=== PATIENT | male | born 1985 | race Caucasian/White ===

== ENCOUNTER 2022-09-03 23:02 | Inpatient (IN) ==
[2022-09-03 23:39] LABS: Appearance Urine Clear (Clear); Bilirubin Urine Negative (Negative); Blood Urine Negative (Negative); Color Urine Yellow; Glucose Urine UA Negative (Negative); Ketones Urine Negative (Negative); Leukocyte Esterase Urine Negative (Negative); Nitrite Urine Negative (Negative); Protein Urine Negative (Negative); Specific Gravity Urine 1.018 (1.000-1.030); Urobilinogen Urine Negative (Negative); pH Urine 6.5 (4.5-7.5)
[2022-09-03 23:40] LABS: Basophils # (auto) 0.06 K/uL (0-0.2); Basophils % (auto) 0.5 %; Eosinophils # (auto) 0.27 K/uL (0-0.50); Eosinophils % (auto) 2.4 %; Hemoglobin 16.5 g/dl (14.0-18.0); Immature Granulocytes # (auto) 0.05 K/uL (0.01-0.20); Immature Granulocytes % (auto) 0.4 %; Lymphocytes # (auto) 0.82 K/uL (1.2-3.4); Lymphocytes % (auto) 7.4 %; Mean Corpuscular Hemoglobin 28.2 pg (25.0-34.0); Mean Corpuscular Hgb Conc 35.1 g/dL (32.0-36.0); Mean Corpuscular Volume 80.2 fL (80.0-100.0); Mean Platelet Volume 9.7 fL (9.4-12.4); Monocytes # (auto) 0.84 K/uL (0.11-0.59); Monocytes % (auto) 7.5 %; Neutrophils # (auto) 9.09 K/uL (1.40-6.50); Neutrophils % (auto) 81.8 %; Platelet Count 209 K/uL (130-400); RDW Coefficient of Variation 13.6 % (11.5-14.5); RDW Standard Deviation 39.8 fL (36.4-46.3); Red Blood Count 5.86 M/uL (4.70-6.10); White Blood Count 11.13 K/ul (4.8-10.8)
[2022-09-04 00:01] LABS: Albumin Globulin Ratio 1.3 (0.9-2); Albumin Level 3.7 gm/dl (3.4-5.0); Bilirubin,Total 1.1 mg/dl (0.2-1.0); Calcium 8.6 mg/dl (8.6-10.3); Creatinine Clr Calc Pharmacy 105.7 ml/min; Est GFR (African American) 97.1 ml/min; Est GFR (Non-African American) 83.8 ml/min; Globulin 2.8 gm/dl (2.5-4.0); Magnesium 1.6 mg/dl (1.7-2.4); Potassium 3.9 mmol/L (3.5-5.1); Total Protein 6.5 gm/dl (6.0-8.3)
[2022-09-04 00:22] LABS: Partial Thromboplastin Ratio 1.1
[2022-09-04] MEDS ORDERED: SODIUM CHLORIDE 0.9% 1000ML 2,000 ML IV ONE (00:23)
[2022-09-04] MEDS ORDERED: ONDANSETRON INJ 2 MG/ML 2 ML VIAL IV STA (00:34)
[2022-09-04] MEDS ORDERED: KETOROLAC 30 MG/ML VIAL IV ONE (00:34)
[2022-09-04] MEDS ORDERED: VANCOMYCIN HCL 2,500 MG in SODIUM CHLORIDE 0.9% 500 ML IV ONE (00:37)
[2022-09-04] MEDS ORDERED: VANCOMYCIN CONSULT ACTIVE PRN (00:37)
[2022-09-04] MEDS ORDERED: CEFEPIME 2,000 MG/20 ML VIAL IV STA (00:37)
[2022-09-04 01:07] LABS: Influenza A virus by PCR Negative (Neg); Influenza B virus by PCR Negative (Neg); RSV by PCR Negative (Neg); SARS CoV2 RNA(COVID-19) Ceph NEGATIVE (Negative)
[2022-09-04 01:08] LABS: Lyme Ab IgG w/WB Rflx Negative (Negative)
[2022-09-04 01:14] LABS: Lyme Ab IgM w/WB Rflx Equivocal (Negative)
[2022-09-04] MEDS ORDERED: OPTIRAY 320 100ml IV ONE (01:26)
[2022-09-04] MEDS ORDERED: VANCOMYCIN HCL 2,500 MG in SODIUM CHLORIDE 0.9% 500 ML IV STA (01:29)
[2022-09-04] MEDS ORDERED: SODIUM CHLORIDE 0.9% 1000ML 1,000 ML IV ONE (01:41)
--- NOTE | 2022-09-04 01:41 | CT Scan Report ---
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 TECHNIQUE: Axial computed tomography images of the abdomen and pelvis with intravenous contrast. Automated exposure control was utilized for the study. A dose lowering technique was utilized adhering to the principles of ALARA. CONTRAST: Patient received 94 ML of IV contrast COMPARISON: No relevant prior studies available. FINDINGS: Lung bases: Unremarkable. No mass. No consolidation. ABDOMEN: Liver: Unremarkable. No mass. Gallbladder and bile ducts: Unremarkable. No calcified stones. No ductal dilation. Pancreas: Unremarkable. No mass. No ductal dilation. Spleen: Unremarkable. No splenomegaly. Adrenals: Unremarkable. No mass. Kidneys and ureters: Unremarkable. No solid mass. No hydronephrosis. Stomach and bowel: Unremarkable. No obstruction. No mucosal thickening. PELVIS: Appendix: No findings to suggest acute appendicitis. Bladder: Unremarkable. No mass. Reproductive: Unremarkable as visualized. ABDOMEN and PELVIS: Intraperitoneal space: Unremarkable. No free air. No significant fluid collection. Bones/joints: No acute fracture. No dislocation. Soft tissues: There is some soft tissue swelling in the perineal region without subcutaneous gas to suggest Ling's gangrene. Vasculature: Unremarkable. No abdominal aortic aneurysm. Lymph nodes: Unremarkable. No enlarged lymph nodes. IMPRESSION: There is some soft tissue swelling in the perineal region without subcutaneous gas to suggest Ling's gangrene. Electronically signed by: Demetrius Steen MD 09/04/22 01:40 AM
[2022-09-04] MEDS ORDERED: DOXYCYCLINE HYCLATE 100 MG in DEXTROSE 5% 100 ML IV STA (01:42)
[2022-09-04] MEDS ORDERED: ACETAMINOPHEN 500 MG TAB PO STA (02:35)
[2022-09-04] MEDS ORDERED: NSS + 20MEQ KCL 20 MEQ/1,000 ML BAG IV STA (03:26)
[2022-09-04] MEDS ORDERED: MAGNESIUM SULFATE / D5W 1 GM/100 ML BAG IV STA (03:26)
--- NOTE | 2022-09-04 03:59 | History & Physical Report ---
Date of Service September 04, 2022 Assessment & Plan (1) Sepsis: Plan: Severe sepsis SIRS plus lactic acidosis Secondary to scrotal cellulitis with perineal spread rule out abscess Transaminitis, also noted on outpatient blood work, possible fatty liver disease Mood disorder, currently stable off maintenance medications Hyperglycemia rule out DM Ongoing tobacco abuse Medical telemetry CS, Doxycycline, Cefepime Scrotal ultrasound Urology consult Re: Scrotal swelling N.p.o. until scrotal ultrasound results out Liver ultrasound Re: Transaminitis Check hemoglobin A1c Nicotine patch DVT prophylaxis. Lovenox subcu Full code Text document was generated using [employer] voice recognition software. It may contain grammatical or spelling errors. Kindly contact undersigned for clarification of any documentation item in question. History of Present Illness Chief Complaint: Painful scrotal swelling Primary Care Provider: Dr. De León History obtained from patient, family, and records. Medical history significant for mood disorder, ongoing tobacco abuse. 4 days history right scrotal swelling. Patient thinks he might have been bitten by something. Increased swelling with pain going to his groin and upper belly. Transient headache symptoms. No chest pain, no SOB, no cough. Vancomycin, cefepime, doxycycline administered at the ER for sepsis. Medical History as above Surgical History : None Family History : DM, heart disease, stroke Personal/Social history : 1 pack daily, no EtOH intake, plumbing/HVAC/freezer work Allergies Allergy/AdvReac Type Severity Reaction Status Date / Time meperidine Allergy Severe SOB, Verified 09/04/22 02:21 SWELLING OF THROAT methocarbamol Allergy Severe SOB, Verified 09/04/22 02:21 SWELLING OF THROAT tramadol Allergy Severe SOB, Verified 09/04/22 02:21 SWELLING OF THROAT Home Medications Medication Instructions Recorded Confirmed Type acetaminophen 325 mg tablet 650 mg PO Q4H PRN PAIN/FEVER 09/04/22 09/04/22 History (Tylenol) ibuprofen 200 mg tablet (Advil) 400 mg PO Q6H PRN FEVER/PAIN 09/04/22 09/04/22 History Past Med/Surg History Medical History No significant medical problems Surgical History (Updated 11/04/19 @ 06:42 by Shira Steen PA-C) No pertinent past surgical history Social History Smoking Status: Current every day smoker Do You Dip or Chew Tobacco: No; Hx Alcohol Use: Yes Alcohol type: hard liquor Hx Substance Use: No Preferred Language: Wolof Communication Ability: Effective [employer] Required: No Beliefs That Will Affect Care: None Current Living Situation: Spouse current occupational status: employed Other Information That Helps Us Care for You: No Feels Safe at Home: Yes Safety Concerns: Feels Safe At This Time Assistive Devices: None Review of Systems Review of Systems: As per HPI, all other systems reviewed and negative Physical Exam Physical Exam: GENERAL: Slightly uncomfortable, obese, looks older than stated age, no respiratory distress SKIN: Normal color, warm HEENT: [place] palpebral conjunctivae, no ptosis, dry buccal mucosa NECK : Supple, short neck, no tenderness CHEST : CTA, no tenderness HEART : Tachycardic, no obvious murmurs ABDOMEN: Some distention, nontender : Black crusted lesion over tender right scrotal swelling EXTREMITIES : No LE swelling/tenderness, no other conspicuous deformities noted NEUROLOGIC : Coherent, no facial asymmetry, no other gross focality Results & Data Results & Data Vital Signs (Past 12 Hours) Vital Signs Temp Pulse Resp BP Pulse Ox O2 Del Method 09/04/22 03:29 37.3 C 09/04/22 03:00 110 H 24 130/74 96 Room Air 09/04/22 02:30 118 H 22 126/73 92 Room Air 09/04/22 01:30 115 H 23 131/83 98 09/04/22 01:00 113 H 22 136/84 97 09/04/22 00:58 39.1 C H 09/04/22 00:30 117 H 17 124/85 94 Room Air 09/04/22 00:17 114 H 24 129/67 95 Room Air 09/04/22 00:16 117 H 09/03/22 23:04 38 C H 124 H 18 126/78 97 Room Air Laboratory Results Laboratory Results WBC 11.13 K/ul (4.8-10.8) H 09/03/22 23:24 RBC 5.86 M/uL (4.70-6.10) 09/03/22 23:24 Hgb 16.5 g/dl (14.0-18.0) 09/03/22 23:24 Hct 47.0 % (42.0-52.0) 09/03/22 23:24 MCV 80.2 fL (80.0-100.0) 09/03/22 23:24 MCH 28.2 pg (25.0-34.0) 09/03/22 23:24 MCHC 35.1 g/dL (32.0-36.0) 09/03/22 23:24 RDW Std Deviation 39.8 fL (36.4-46.3) 09/03/22 23: RDW Coeff of Joy 13.6 % (11.5-14.5) 09/03/22 23: Plt Count 209 K/uL (130-400) 09/03/22 23:24 MPV 9.7 fL (9.4-12.4) 09/03/22 23:24 Immature Gran % (Auto) 0.4 % 09/03/22 23:24 Neut % (Auto) 81.8 % 09/03/22 23:24 Lymph % (Auto) 7.4 % 09/03/22 23:24 [place] % (Auto) 7.5 % 09/03/22 23:24 Eos % (Auto) 2.4 % 09/03/22 23:24 Baso % (Auto) 0.5 % 09/03/22 23:24 Neut # (Auto) 9.09 K/uL (1.40-6.50) H 09/03/22 23:24 Lymph # (Auto) 0.82 K/uL (1.2-3.4) L 09/03/22 23:24 [place] # (Auto) 0.84 K/uL (0.11-0.59) H 09/03/22 23:24 Eos # (Auto) 0.27 K/uL (0-0.50) 09/03/22 23:24 Baso # (Auto) 0.06 K/uL (0-0.2) 09/03/22 23:24 Immature Gran # (Auto) 0.05 K/uL (0.01-0.20) 09/03/22 23:24 PT 11.0 Seconds (9.0-12.0) 09/03/22 23:24 INR 1.0 (0.9-1.1) 06/30/23 23:24 APTT 30.0 Seconds (21.0-31.0) 09/03/22 23:24 PTT Ratio 1.1 09/03/22 23:24 Sodium 133 mmol/L (136-145) L 09/03/22 23:24 Potassium 3.9 mmol/L (3.5-5.1) 09/03/22 23:24 Chloride 103 mmol/L (98-107) 09/03/22 23:24 Carbon Dioxide 19 mmol/L (21-32) L 09/03/22 23:24 Anion Gap 11 (3-11) 09/03/22 23:24 BUN 10 mg/dl (6-23) 09/03/22 23:24 Creatinine 1.11 mg/dl (0.6-1.4) 09/03/22 23:24 Est Cr Clr Drug Dosing 105.7 ml/min 09/03/22 23:24 Est GFR ( Amer) 97.1 ml/min 09/03/22 23:24 Est GFR (Non-Af Amer) 83.8 ml/min 09/03/22 23:24 BUN/Creatinine Ratio 9.0 (10-20) L 09/03/22 23:24 Glucose 139 mg/dl (70-99(Fasting)) H 09/03/22 23:24 Lactate 1.4 mmol/L (0.4-2.0) 09/04/22 01:14 Calcium 8.6 mg/dl (8.6-10.3) 09/03/22 23:24 Magnesium 1.6 mg/dl (1.7-2.4) L 09/03/22 23:24 Total Bilirubin 1.1 mg/dl (0.2-1.0) H 09/03/22 23:24 AST 53 U/L (13-39) H 09/03/22 23:24 ALT 78 U/L (7-52) H 09/03/22 23:24 Alkaline Phosphatase 104 U/L (34-104) 09/03/22 23:24 Total Protein 6.5 gm/dl (6.0-8.3) 09/03/22 23:24 Albumin 3.7 gm/dl (3.4-5.0) 09/03/22 23:24 Globulin 2.8 gm/dl (2.5-4.0) 09/03/22 23:24 Albumin/Globulin Ratio 1.3 (0.9-2) 09/03/22 23:24 Procalcitonin 0.09 ng/ml (0-0.5) 09/03/22 23:24 Urine Color Yellow 09/03/22 23:24 Urine Appearance Clear (Clear) 09/03/22 23:24 Urine pH 6.5 (4.5-7.5) 09/03/22 23:24 Ur Specific [place] 1.018 (1.000-1.030) 09/03/22 23:24 Urine Protein Negative (Negative) 09/03/22 23:24 Urine Glucose (UA) Negative (Negative) 09/03/22 23:24 Urine Ketones Negative (Negative) 09/03/22 23:24 Urine Blood Negative (Negative) 09/03/22 23:24 Urine Nitrite Negative (Negative) 09/03/22 23:24 Urine Bilirubin Negative (Negative) 09/03/22 23:24 Urine Urobilinogen Negative (Negative) 09/03/22 23:24 Ur Leukocyte Esterase Negative (Negative) 09/03/22 23:24 Anaplasma Smear See Comment 09/03/22 23:24 Babesia Smear See Comment 09/03/22 23:24 Lyme Disease IgG Ab Negative (Negative) 09/03/22 23:24 Lyme Disease IgM Ab Equivocal (Negative) A 09/03/22 23:24 SARS-CoV-2 (PCR) NEGATIVE (Negative) 09/04/22 00:00 Influenza Type A (PCR) Negative (Neg) 09/04/22 00:00 Influenza Type B (PCR) Negative (Neg) 09/04/22 00:00 RSV (RT-PCR) Negative (Neg) 09/04/22 00:00 Impressions Abdomen/Pelvis CT 09/04/22 00:34 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 TECHNIQUE: Axial computed tomography images of the abdomen and pelvis with intravenous contrast. Automated exposure control was utilized for the study. A dose lowering technique was utilized adhering to the principles of ALARA. CONTRAST: Patient received 94 ML of IV contrast COMPARISON: No relevant prior studies available. FINDINGS: Lung bases: Unremarkable. No mass. No consolidation. ABDOMEN: Liver: Unremarkable. No mass. Gallbladder and bile ducts: Unremarkable. No calcified stones. No ductal dilation. Pancreas: Unremarkable. No mass. No ductal dilation. Spleen: Unremarkable. No splenomegaly. Adrenals: Unremarkable. No mass. Kidneys and ureters: Unremarkable. No solid mass. No hydronephrosis. Stomach and bowel: Unremarkable. No obstruction. No mucosal thickening. PELVIS: Appendix: No findings to suggest acute appendicitis. Bladder: Unremarkable. No mass. Reproductive: Unremarkable as visualized. ABDOMEN and PELVIS: Intraperitoneal space: Unremarkable. No free air. No significant fluid collection. Bones/joints: No acute fracture. No dislocation. Soft tissues: There is some soft tissue swelling in the perineal region without subcutaneous gas to suggest Ling's gangrene. Vasculature: Unremarkable. No abdominal aortic aneurysm. Lymph nodes: Unremarkable. No enlarged lymph nodes. IMPRESSION: There is some soft tissue swelling in the perineal region without subcutaneous gas to suggest Ling's gangrene. Electronically signed by: Demetrius Steen MD 09/04/22 01:40 AM Diagnostic Findings EKG as per my interpretation : Rate 120, sinus tachycardia, normal axis, no ischemia
[2022-09-04] MEDS ORDERED: ACETAMINOPHEN 500 MG TAB PO PRN (04:04)
[2022-09-04] MEDS ORDERED: PROMETHAZINE HCL 12.5 MG in SODIUM CHLORIDE 0.9% 50 ML IV PRN (04:04)
[2022-09-04] MEDS ORDERED: LORazepam 0.5 MG TAB PO PRN (04:04)
[2022-09-04] MEDS ORDERED: NICOTINE 21 MG/24 HR TDSY TD STA (04:11)
[2022-09-04] MEDS: oxyCODONE HCL IR 5 MG TAB (IMMEDIATE RELEASE) PO PRN ×3 (06:46→21:07)
[2022-09-04 07:24] LABS: Basophils # (auto) 0.06 K/uL (0-0.2); Basophils % (auto) 0.6 %; Eosinophils # (auto) 0.19 K/uL (0-0.50); Eosinophils % (auto) 1.8 %; Hematocrit (blood only) 42.1 % (42.0-52.0); Hemoglobin 14.3 g/dl (14.0-18.0); Immature Granulocytes # (auto) 0.03 K/uL (0.01-0.20); Immature Granulocytes % (auto) 0.3 %; Lymphocytes # (auto) 0.95 K/uL (1.2-3.4); Lymphocytes % (auto) 9.2 %; Mean Corpuscular Hemoglobin 28.1 pg (25.0-34.0); Mean Corpuscular Volume 82.9 fL (80.0-100.0); Mean Platelet Volume 9.4 fL (9.4-12.4); Monocytes # (auto) 1.29 K/uL (0.11-0.59); Monocytes % (auto) 12.5 %; Neutrophils # (auto) 7.82 K/uL (1.40-6.50); Neutrophils % (auto) 75.6 %; Platelet Count 163 K/uL (130-400); RDW Coefficient of Variation 13.9 % (11.5-14.5); RDW Standard Deviation 42.2 fL (36.4-46.3); Red Blood Count 5.08 M/uL (4.70-6.10); White Blood Count 10.34 K/ul (4.8-10.8)
[2022-09-04 07:53] LABS: Albumin Globulin Ratio 1.4 (0.9-2); Albumin Level 3.1 gm/dl (3.4-5.0); BUN Creatinine Ratio 8.1 (10-20); Bilirubin,Total 1.1 mg/dl (0.2-1.0); Calcium 7.5 mg/dl (8.6-10.3); Creatinine Clr Calc Pharmacy 95.7 ml/min; Est GFR (African American) 85.8 ml/min; Globulin 2.2 gm/dl (2.5-4.0); Magnesium 1.9 mg/dl (1.7-2.4); Potassium 4.3 mmol/L (3.5-5.1); Total Protein 5.3 gm/dl (6.0-8.3)
--- NOTE | 2022-09-04 08:01 | Ultrasound Report ---
TESTICULAR ULTRASOUND HISTORY: Right scrotal swelling COMPARISON: None. FINDINGS: Right testis: 54 x 36 x 22 mm. A few punctate microliths are noted. There are no intratesticular mass es. Normal color flow. A few small epididymal head cysts up to 7 mm. Trace hydrocele. Asymmetric thic kening within the scrotal wall with increased vascularity. No loculated fluid collections to suggest an abscess. Left testis: 50 x 31 x 23 mm. A few scattered microliths are noted. There are no intratesticular mass es. Normal color flow. No hydrocele. The epididymis is unremarkable. IMPRESSION: 1. Asymmetric thickening within the scrotal wall with increased vascularity. This suggests a cellulit is. No loculated fluid collections to suggest an abscess. 2. No scrotal masses. 3. Trace right hydrocele. ACT 112: Negative or not required by law. Electronically signed by: Jose Denise M.D. 09/04/2022 8:00 AM
--- NOTE | 2022-09-04 08:02 | Ultrasound Report ---
ABDOMINAL ULTRASOUND, RIGHT UPPER QUADRANT HISTORY: Abnormal LFTs.. COMPARISON: Abdomen and pelvis CT 09/04/2022. FINDINGS: Pancreas: The pancreatic head and tail are obscured by overlying bowel gas. The remaining portions of the pancreas are within normal limits. Liver: Unremarkable. Gallbladder: No gallbladder wall thickening. No gallstones. The gallbladder is contracted. CBD: 3 mm. Right kidney: No hydronephrosis. IMPRESSION: No significant abnormality identified within the right upper quadrant. ACT 112: Negative or not required by law. Electronically signed by: Jose Denise M.D. 09/04/2022 8:01 AM
--- NOTE | 2022-09-04 08:03 | XRay Report ---
XR chest 1V not portable HISTORY: Sepsis COMPARISON: Chest 03/25/2021. FINDINGS: The lungs are clear. Cardiac silhouette is normal in size. No pleural effusions. No pneumot horax. IMPRESSION: No acute process. ACT 112: Negative or not required by law. Electronically signed by: Jose Denise M.D. 09/04/2022 8:02 AM
[2022-09-04] MEDS: KETOROLAC TROMETHAMINE 15 MG/ML VIAL IV PRN (08:05)
[2022-09-04 08:18] LABS: Estimated Average Glucose 97 mg/dl
[2022-09-04] MEDS: NICOTINE 21 MG/24 HR TDSY TD SCH (08:27)
[2022-09-04] MEDS: CEFEPIME 2,000 MG in SYRINGE 0 ML IV SCH ×2 (08:27→16:25)
[2022-09-04] MEDS: ENOXAPARIN INJ 40 MG/0.4 ML SYR SQ SCH (08:28)
--- NOTE | 2022-09-04 13:18 | Urology Consultation ---
Date of Consultation September 04, 2022 Assessment & Plan (1) Sepsis: (2) Scrotal abscess: Plan Patient admitted with sepsis. Found to have scrotal abscess. Abscess had significant induration but no considerable tracking and no severe erythema. At the area appeared to be significantly tender. It did not have any considerable areas of fluctuation and no obvious fluid cavity however patient did have a area of darkened/discolored skin at the apex of the likely abscess. This tissue did have a concern for forming eschar possibly from skin necrosis. Patient is on broad-spectrum antibiotics and is receiving supportive care and is not being monitored closely with close management. Currently vitals have stabilized. Pulse is 82. Blood pressure 113/70. Temp is currently 37.2 Tmax was 39.0 earlier today. Patient's labs were all reviewed. White count is currently 10.34. Creatinine 1.23. Hemoglobin 14.3. All other labs are reviewed pertinent pertinent values in the HPI and in the plan section. Patient's imaging has all been reviewed as well. It was interpreted by myself. Had scrotal ultrasound as well as CT scan. Both are showing signs of cellulitis in the scrotum. No considerable signs of subcutaneous air concerning for possible abscess formation. On physical examination no signs of crepitus. No definitive abscess cavity or fluid collection was able to be palpated patient is quite tender on palpation. Did discuss possible spreading of infection however at this point does not appear to have any tracking or significant spread of area. Total area is approximately 2.8 cm in size and does not appear to be tracking along the scrotal tissue. Patient is tolerating p.o. and IV hydration. Had a full lunch. Did discuss extensively different options for management including possible need for debridement and drainage. Discussed concern related to possible skin necrosis from pressure from induration and abscess. Discussed possible options moving forward. Does not appear to have considerable tracking. Does not appear to have signs of foreign years gangrene or other severe changes. Has improved with hydration and close monitoring and care. Extensively reviewed options including surgical drainage. Discussed bedside procedure versus operative management. Discussed other concerns and issues. At this point patient is interested in observation for now with IV hydration and p.o. intake in order to continue oral antibiotics as well as broad-spectrum IV antibiotics. We will be reasonable to monitor for now due to the small size however with signs of possible necrosis may need to have debridement even if abscess resolves or has spontaneous drainage. Discussed extensively need for healing by secondary intent in order to heal the area. Discussed concerns and issues. Multiple questions answered. At this point will allow additional time for hydration as well as broad-spectrum antibiotics. We will plan to continue to monitor. May need to consider surgical intervention in the next day or 2 depending on how patient presents clinically if he develops significant worsening of sepsis development of severe fevers or worsening clinical findings of abscess including tracking or development of gangrene would likely need emergent surgery. We will plan for observation for now with follow-up and monitoring. Will reassess for possible scrotal abscess management with debridement and drainage tomorrow depending on patient's clinical course. Patient with complicated medical and surgical history is reviewed and summarized above all imaging was reviewed interpreted by myself. All labs were reviewed with pertinent values in the HPI. History of Present Illness Attending Physician: Daquan Fernando MD History of Present Illness New consultation for patient with abscess, scrotal pain, discomfort, and ill feelings. Patient developed sudden onset of pain into scrotum and groin and radiating into groin and back in waves comes and goes. Can be severe at times. Discussed and reviewed patient's family history for any history of issues, infections, and disease. Also, discussed patient's medical/surgery history especially related to any history of urinary issues or stone disease. Patient was admitted and is undergoing observation with broad spectrum IV antibiotics. Allergies Allergy/AdvReac Type Severity Reaction Status Date / Time meperidine Allergy Severe SOB, Verified 09/04/22 02:21 SWELLING OF THROAT methocarbamol Allergy Severe SOB, Verified 09/04/22 02:21 SWELLING OF THROAT tramadol Allergy Severe SOB, Verified 09/04/22 02:21 SWELLING OF THROAT Home Medications Medication Instructions Recorded Confirmed Type acetaminophen 325 mg tablet 650 mg PO Q4H PRN PAIN/FEVER 09/04/22 09/04/22 History (Tylenol) ibuprofen 200 mg tablet (Advil) 400 mg PO Q6H PRN FEVER/PAIN 09/04/22 09/04/22 History Patient History Medical History No significant medical problems Surgical History No pertinent past surgical history Social History Smoking Status: Current every day smoker Do You Dip or Chew Tobacco: No; Hx Alcohol Use: Yes Alcohol type: hard liquor Hx Substance Use: No Preferred Language: Greek Communication Ability: Effective [employer] Required: No Beliefs That Will Affect Care: None Current Living Situation: Spouse current occupational status: employed Other Information That Helps Us Care for You: No Feels Safe at Home: Yes Safety Concerns: Feels Safe At This Time Assistive Devices: None Review of Systems Review of Systems: All systems reviewed & are unremarkable except as noted in HPI & below Physical Exam Physical Exam: General: Alert and oriented x 3 in no acute distress. HEENT: Normocephalic Atraumatic. Inspection normal. Cranial Nerves 2-12 Grossly intact. Nares are clear. Neck is supple. Normal inspection of face. Normal inspection of neck. Neurologic: No deficits on inspection. Baseline for motor function and sensory. Psychologic: Normal affect. Respiratory: Nonlabored. No use of accessory muscles. No tachypnea or dyspnea. Cardiovascular: No tachycardia Skin: [place] and Dry. No rashes or visible lesions. Extremities: Moving without issues. No motor deficits on inspection Lymphatics: No edema Abdomen: Soft Non-distended. No rebound or guarding. : Normal phallus. Normal testicular exam without mass or lesion. Possible small hydrocele. Approximately 2.8 cm indurated area on the posterior portion of the scrotum near the dependent portion of the scrotum along the midline with mild erythema. No considerable tracking of tissue. No obvious or significant fluctuance. Darkened possibly a vascular/eschar area approximately 8 mm x 11 mm in size at the apex of the induration. Results & Data Vital Signs (Past 12 Hours) Vital Signs Temp Pulse Pulse Resp BP BP Pulse Ox 09/04/22 11:43 37.2 C 82 18 113/70 94 09/04/22 10:37 103 H 09/04/22 07:48 38.0 C H 105 H 18 108/64 94 09/04/22 06:26 09/04/22 06:26 37.2 C 99 H 16 111/70 99 09/04/22 05:00 99 H 23 125/76 96 09/04/22 04:30 104 H 24 104/73 95 09/04/22 04:07 103 H 09/04/22 04:00 109 H 24 131/81 96 09/04/22 03:30 110 H 22 109/71 96 09/04/22 03:29 37.3 C 09/04/22 03:00 110 H 24 130/74 96 09/04/22 02:30 118 H 22 126/73 92 09/04/22 01:30 115 H 23 131/83 98 O2 Del Method 09/04/22 11:43 Room Air 09/04/22 10:37 09/04/22 07:48 Room Air 09/04/22 06:26 Room Air 09/04/22 06:26 Room Air 09/04/22 05:00 Room Air 09/04/22 04:30 Room Air 09/04/22 04:07 09/04/22 04:00 Room Air 09/04/22 03:30 Room Air 09/04/22 03:29 09/04/22 03:00 Room Air 09/04/22 02:30 Room Air 09/04/22 01:30 PG Care Time/CCT Total # of Minutes Spent Total Time Spent with Patient: Total time spent is greater than 50% in coordination of care (as documented) at patient's floor/unit and/or counseling patient: Coding Level of Care Code 85812 IN/OBS CONSULT LVL 5,80M Diagnoses Sepsis A41.9 Scrotal abscess N49.2
[2022-09-04] MEDS: ACETAMINOPHEN 325 MG TAB PO SCH ×2 (13:51→20:17)
[2022-09-04] MEDS: DAPTOmycin 350 MG in SYRINGE 0 ML IV SCH ×2 (14:59→15:00)
--- NOTE | 2022-09-04 15:09 | Hospitalist Progress Note ---
Date of Service September 04, 2022 Assessment & Plan (1) Sepsis: Plan: Severe sepsis SIRS plus lactic acidosis Secondary to scrotal cellulitis -- blood culture: negative -- Scrotum US: 1. Asymmetric thickening within the scrotal wall with increased vascularity. This suggests a cellulitis. No loculated fluid collections to suggest an abscess. 2. No scrotal masses. . Trace right hydrocele. --Lyme screen protocol, Western blot pending Anaplasmosis -- continue daptomycin, cefepime, doxycycline Transaminitis, also noted on outpatient blood work, possible fatty liver disease Mood disorder, currently stable off maintenance medications Hyperglycemia rule out DM Ongoing tobacco abuse DVT prophylaxis. Lovenox subcu Full code plan of care discussed with patient in detail and at length all questions answered he is understanding, agreeable, comfortable with the plan of care Admission and Anticipated Discharge Date Admission Date: September 04, 2022 Subjective ff up for sepsis, scrotal cellulitis, etc seen resting in bed, not in distress states pain over the scrotal area, R inguinal area, and lower abdomen about the same denies problems with urination still having some fever/chills no nausea/vomiting no chest pain, dyspnea, palpitations, dizziness no other symptoms Review of Systems Review of Systems: all noted and negative except for above Physical Exam Physical Exam: General- oriented x 3, not in distress, speaks in sentences with no effort or accessory muscle use Eyes- anicteric Neck- no JVD Lungs- clear breath sounds bilaterally, no rales/wheezes Heart- normal rate, regular rhythm; no murmurs Abdomen- normal bowel sounds, nondistended, soft, nontender [place]- (+) moderate erythema (+) small area of induration at the midline small eschar R testicle Neuro- alert, oriented x 3; no gross focal neurologic deficits Skin- warm & dry Results & Data Results & Data Vital Signs (Past 12 Hours) Vital Signs Temp Pulse Pulse Resp BP BP Pulse Ox 09/04/22 11:43 37.2 C 82 18 113/70 94 09/04/22 10:37 103 H 09/04/22 07:48 38.0 C H 105 H 18 108/64 94 09/04/22 06:26 09/04/22 06:26 37.2 C 99 H 16 111/70 99 09/04/22 05:00 99 H 23 125/76 96 09/04/22 04:30 104 H 24 104/73 95 09/04/22 04:07 103 H 09/04/22 04:00 109 H 24 131/81 96 09/04/22 03:30 110 H 22 109/71 96 09/04/22 03:29 37.3 C O2 Del Method 09/04/22 11:43 Room Air 09/04/22 10:37 09/04/22 07:48 Room Air 09/04/22 06:26 Room Air 09/04/22 06:26 Room Air 09/04/22 05:00 Room Air 09/04/22 04:30 Room Air 09/04/22 04:07 09/04/22 04:00 Room Air 09/04/22 03:30 Room Air 09/04/22 03:29 all noted and reviewed including below
--- NOTE | 2022-09-04 18:58 | Emergency Department Note ---
Impression & Plan Severe sepsis, Cellulitis of scrotum, Insect bite of scrotum Admit to the [facility] ED Provider Note NAME: REEMA CARO AGE: 36 SEX: M ARRIVES VIA: Walk-In INFORMANT: Patient and his ED PROVIDER(S): Renay Sandoval DO CHIEF COMPLAINT: Insect bite to the scrotum PLAN: Disposition: Admit to the [facility] Condition: Critical MEDICAL DECISION MAKING: This is a 36-year-old male patient who presents to the emergency department with an insect bite to the scrotum. He has had a high fever and what he thought was an insect bite to his scrotum approximately 3 to 4 days ago. Patient's symptoms have worsened since that time. Patient thought he may have been bitten by a spider as the area has now turned black. CT scan of the abdomen/pelvis/scrotum reveals no evidence of necrotizing fasciitis. Laboratory studies showed mild leukocytosis with a white count of 11.13 with 81% neutrophils. H&H are stable. Sodium is slightly low at 133. Patient's initial lactate was 3.6 concerning for severe sepsis. After 2-3 L of normal saline solution it came down to 1.4. The patient remained hemodynamically stable. LFTs were mildly elevated with a total bilirubin of 1.1 and transaminases were elevated at 53/78. Urinalysis was unremarkable. Anaplasmosis testing was negative. Lyme testing was equivocal. The patient was empirically started on IV vancomycin and cefepime. I did add IV doxycycline. Patient was given p.o. Tylenol for his fever. He was given IV Toradol for the pain in the scrotum. [facility] for [facility] management. Triage Nursing notes reviewed and agree with them. Additional history obtained from patient's is at the bedside Vital Signs: reviewed and remarkable for fever and tachycardia Differential diagnosis: Tick bite, brown recluse spider bite, Ling's gangrene, scrotal cellulitis, sepsis, Lyme disease, anaplasmosis ER treatment provided: Cardiac monitoring Diagnostics interpreted by me: ECG: Sinus tachycardia [address] segment elevation or signs of ischemia. There is no ectopy. Cardiac Monitoring: Sinus tachycardia at 118 Laboratory studies: See below Imaging studies: As per my independent interpretation Portable chest x-ray: No acute pulmonary infiltrates or consolidation As per stat rad: CT scan of the abdomen/pelvis: See report HPI: 36/M arrives for evaluation of scrotal pain. On Tuesday morning, the patient noticed a discomfort in his testicles. Patient works the overnight shift and had put on a jumpsuit that he wears at work. He wondered if there had been some sort of spider or insect in the suit that could have bit his scrotum. He noted a black emmy on the scrotum that have been painful for him. He then began to feel sick and feverish on Tuesday. He did have a temp greater than 102. Symptoms seem to be worsening throughout the week. PAST MEDICAL HISTORY:None PAST SURGICAL HISTORY:See Below FAMILY HISTORY:See Below SOCIAL HISTORY:See Below HOME MEDICATIONS:None ALLERGIES:None VITALS:See Below PHYSICAL EXAMINATION: HEENT: Head - normocephalic and atraumatic. Pupils are equal, round, and reactive to light. Extraocular eye muscles are intact, and sclera are anicteric. Nose - moist nasal mucosa without discharge. Mouth - moist buccal mucosa. Oropharynx is nonerythematous and there is no tonsillar exudate or edema noted. Neck: Supple; no cervical lymphadenopathy or nuchal rigidity. Heart: Tachycardic rate and regular rhythm there is a normal S1 and S2 with no murmurs, clicks, or gallops appreciated. Lungs: Clear to auscultation bilaterally with no wheezes, rales, or rhonchi. Abdomen: Soft, completely nontender, nondistended, with good bowel sounds. There are no palpable pulsatile masses or hepatosplenomegaly. There is no guarding, rigidity, or rebound noted. Genitalia: There was an area of necrosis the size of a quarter on the inferior aspect of the scrotum that was exquisitely tender to touch. I could not appreciate an embedded tick or any other type of insect bite. There was surrounding erythema and edema noted to the scrotum. Extremities: No evidence of cyanosis, clubbing, or edema. There are easily palpable peripheral pulses. Skin: warm and dry with good turgor and no rashes. ED COURSE: Times/Reassessments: 2355: Patient was evaluated in room C10. The patient had protocols placed in the waiting room which identified an elevated lactate and the patient was brought back to a room. The patient was bolused with IV crystalloids. A complete septic work-up was initiated. A portable chest x-ray was performed. An order was placed for continuous cardiac monitoring. The patient was in a sinus tachycardia at a rate of 118. A twelve-lead EKG was obtained as described above. Patient received a total of 30 MLS per kilogram of normal saline solution. He was given 4 mg of IV Zofran for nausea and 30 mg of IV Toradol for the pain in his scrotum. He was empirically started on IV vancomycin and IV cefepime. He was given oral Tylenol for his fever. He went for a CT scan of the abdomen/pelvis to further evaluate the scrotum to rule out necrotizing fasciitis. Lyme titer returned at equivocal and the patient was treated with IV doxycycline. Patient's lactic acid was reflexively repeated and came back at 1.4. [facility] and [facility] will [facility] for inpatient care. I have personally spent greater than 95 minutes of critical care time in the direct management of this patient. This includes bedside care, interpretation of diagnostic studies, and testing, discussion with consultants, patient, and family members, and other required patient management activities. This 95 minutes is in excess of all separately billable procedures. Renay Sandoval DO Past Med/Surg History Medical History No significant medical problems Surgical History No pertinent past surgical history Social History Smoking Status: Current every day smoker Do You Dip or Chew Tobacco: No; Hx Alcohol Use: Yes Alcohol type: hard liquor Hx Substance Use: No Preferred Language: Tamazight Communication Ability: Effective Underwriter Required: No Beliefs That Will Affect Care: None Current Living Situation: Spouse current occupational status: employed Other Information That Helps Us Care for You: No Feels Safe at Home: Yes Safety Concerns: Feels Safe At This Time Assistive Devices: None Allergies Allergies Allergy/AdvReac Type Severity Reaction Status Date / Time meperidine Allergy Severe SOB, Verified 09/04/22 02:21 SWELLING OF THROAT methocarbamol Allergy Severe SOB, Verified 09/04/22 02:21 SWELLING OF THROAT tramadol Allergy Severe SOB, Verified 09/04/22 02:21 SWELLING OF THROAT Home Meds Home Medications Medication Instructions Recorded Confirmed acetaminophen 325 mg tablet 650 mg PO Q4H PRN PAIN/FEVER 09/04/22 09/04/22 (Tylenol) ibuprofen 200 mg tablet (Advil) 400 mg PO Q6H PRN FEVER/PAIN 09/04/22 09/04/22 Results & Data (ED) Vital Signs Vital Signs - 24 hr 09/03/22 23:04 09/04/22 00:16 09/04/22 00:17 Temperature 38 C H Temperature Source Temporal Artery Scan Pulse Rate 124 H 117 H 114 H Pulse Rate from SpO2 Sensor 114 H Pulse Rhythm Regular Pulse Strength Normal Respiratory Rate 18 24 Respiratory Effort / Characteristics Non-Labored Spontaneous Respiratory Depth Normal Respiratory Pattern Regular Blood Pressure 126/78 129/67 Blood Pressure Mean 94 87 Blood Pressure Position Sitting Pulse Oximetry 97 95 Oxygen Delivery Method Room Air Room Air Sepsis Recent Fever Within 48 Hours Yes Sepsis New/Unexplained Change in Mental Status N/A Sepsis Action Taken by Nursing No Action Required 09/04/22 00:30 09/04/22 00:58 09/04/22 01:00 Temperature 39.1 C H Temperature Source Oral Pulse Rate 117 H 113 H Pulse Rate from SpO2 Sensor 119 H 114 H Pulse Rhythm Pulse Strength Respiratory Rate 17 22 Respiratory Effort / Characteristics Respiratory Depth Respiratory Pattern Blood Pressure 124/85 136/84 Blood Pressure Mean 98 101 Blood Pressure Position Pulse Oximetry 94 97 Oxygen Delivery Method Room Air Sepsis Recent Fever Within 48 Hours Sepsis New/Unexplained Change in Mental Status Sepsis Action Taken by Nursing 09/04/22 01:30 09/04/22 02:30 09/04/22 03:00 Temperature Temperature Source Pulse Rate 115 H 118 H 110 H Pulse Rate from SpO2 Sensor 232 H 119 H 110 H Pulse Rhythm Pulse Strength Respiratory Rate 23 22 24 Respiratory Effort / Characteristics Respiratory Depth Respiratory Pattern Blood Pressure 131/83 126/73 130/74 Blood Pressure Mean 99 90 92 Blood Pressure Position Pulse Oximetry 98 92 96 Oxygen Delivery Method Room Air Room Air Sepsis Recent Fever Within 48 Hours Sepsis New/Unexplained Change in Mental Status Sepsis Action Taken by Nursing 09/04/22 03:29 09/04/22 03:30 09/04/22 04:00 Temperature 37.3 C Temperature Source Oral Pulse Rate 110 H 109 H Pulse Rate from SpO2 Sensor 110 H 113 H Pulse Rhythm Pulse Strength Respiratory Rate 22 24 Respiratory Effort / Characteristics Respiratory Depth Respiratory Pattern Blood Pressure 109/71 131/81 Blood Pressure Mean 83 97 Blood Pressure Position Pulse Oximetry 96 96 Oxygen Delivery Method Room Air Room Air Sepsis Recent Fever Within 48 Hours Sepsis New/Unexplained Change in Mental Status Sepsis Action Taken by Nursing Laboratory Data 09/04/22 07:06 09/04/22 07:06 Lab Results 09/03/22 09/03/22 09/03/22 Range/Units 23:24 23:24 23:24 WBC 11.13 H (4.8-10.8) K/ul RBC 5.86 (4.70-6.10) M/uL Hgb 16.5 (14.0-18.0) g/dl Hct 47.0 (42.0-52.0) % MCV 80.2 (80.0-100.0) fL MCH 28.2 (25.0-34.0) pg MCHC 35.1 (32.0-36.0) g/dL RDW Std Deviation 39.8 (36.4-46.3) fL RDW Coeff of Joy 13.6 (11.5-14.5) % Plt Count 209 (130-400) K/uL MPV 9.7 (9.4-12.4) fL Immature Gran % (Auto) 0.4 % Neut % (Auto) 81.8 % Lymph % (Auto) 7.4 % Searcy % (Auto) 7.5 % Eos % (Auto) 2.4 % Baso % (Auto) 0.5 % Neut # (Auto) 9.09 H (1.40-6.50) K/uL Lymph # (Auto) 0.82 L (1.2-3.4) K/uL Searcy # (Auto) 0.84 H (0.11-0.59) K/uL Eos # (Auto) 0.27 (0-0.50) K/uL Baso # (Auto) 0.06 (0-0.2) K/uL Immature Gran # (Auto) 0.05 (0.01-0.20) K/uL PT 11.0 (9.0-12.0) Seconds INR 1.0 (0.9-1.1) APTT 30.0 (21.0-31.0) Seconds PTT Ratio 1.1 Sodium (136-145) mmol/L Potassium (3.5-5.1) mmol/L Chloride (98-107) mmol/L Carbon Dioxide (21-32) mmol/L Anion Gap (3-11) BUN (6-23) mg/dl Creatinine (0.6-1.4) mg/dl Est Cr Clr Drug Dosing ml/min Est GFR ( Amer) ml/min Est GFR (Non-Af Amer) ml/min BUN/Creatinine Ratio (10-20) Glucose (70-99(Fasting)) mg/dl Estimat Average Glucose mg/dl Hemoglobin A1c (4.5-5.6) % Lactate 3.6 H* (0.4-2.0) mmol/L Calcium (8.6-10.3) mg/dl Magnesium (1.7-2.4) mg/dl Total Bilirubin (0.2-1.0) mg/dl AST (13-39) U/L ALT (7-52) U/L Alkaline Phosphatase (34-104) U/L Total Protein (6.0-8.3) gm/dl Albumin (3.4-5.0) gm/dl Globulin (2.5-4.0) gm/dl Albumin/Globulin Ratio (0.9-2) Procalcitonin (0-0.5) ng/ml Urine Color Urine Appearance (Clear) Urine pH (4.5-7.5) Ur Specific Leslie (1.000-1.030) Urine Protein (Negative) Urine Glucose (UA) (Negative) Urine Ketones (Negative) Urine Blood (Negative) Urine Nitrite (Negative) Urine Bilirubin (Negative) Urine Urobilinogen (Negative) Ur Leukocyte Esterase (Negative) Anaplasma Smear Babesia Smear Lyme Disease IgG Ab (Negative) Lyme Disease IgM Ab (Negative) SARS-CoV-2 (PCR) (Negative) Influenza Type A (PCR) (Neg) Influenza Type B (PCR) (Neg) RSV (RT-PCR) (Neg) 09/03/22 09/03/22 09/03/22 Range/Units 23:24 23:24 23:24 WBC (4.8-10.8) K/ul RBC (4.70-6.10) M/uL Hgb (14.0-18.0) g/dl Hct (42.0-52.0) % MCV (80.0-100.0) fL MCH (25.0-34.0) pg MCHC (32.0-36.0) g/dL RDW Std Deviation (36.4-46.3) fL RDW Coeff of Joy (11.5-14.5) % Plt Count (130-400) K/uL MPV (9.4-12.4) fL Immature Gran % (Auto) % Neut % (Auto) % Lymph % (Auto) % Searcy % (Auto) % Eos % (Auto) % Baso % (Auto) % Neut # (Auto) (1.40-6.50) K/uL Lymph # (Auto) (1.2-3.4) K/uL Searcy # (Auto) (0.11-0.59) K/uL Eos # (Auto) (0-0.50) K/uL Baso # (Auto) (0-0.2) K/uL Immature Gran # (Auto) (0.01-0.20) K/uL PT (9.0-12.0) Seconds INR (0.9-1.1) APTT (21.0-31.0) Seconds PTT Ratio Sodium 133 L (136-145) mmol/L Potassium 3.9 (3.5-5.1) mmol/L Chloride 103 (98-107) mmol/L Carbon Dioxide 19 L (21-32) mmol/L Anion Gap 11 (3-11) BUN 10 (6-23) mg/dl Creatinine 1.11 (0.6-1.4) mg/dl Est Cr Clr Drug Dosing 105.7 ml/min Est GFR ( Amer) 97.1 ml/min Est GFR (Non-Af Amer) 83.8 ml/min BUN/Creatinine Ratio 9.0 L (10-20) Glucose 139 H (70-99(Fasting)) mg/dl Estimat Average Glucose mg/dl Hemoglobin A1c (4.5-5.6) % Lactate (0.4-2.0) mmol/L Calcium 8.6 (8.6-10.3) mg/dl Magnesium 1.6 L (1.7-2.4) mg/dl Total Bilirubin 1.1 H (0.2-1.0) mg/dl AST 53 H (13-39) U/L ALT 78 H (7-52) U/L Alkaline Phosphatase 104 (34-104) U/L Total Protein 6.5 (6.0-8.3) gm/dl Albumin 3.7 (3.4-5.0) gm/dl Globulin 2.8 (2.5-4.0) gm/dl Albumin/Globulin Ratio 1.3 (0.9-2) Procalcitonin 0.09 (0-0.5) ng/ml Urine Color Yellow Urine Appearance Clear (Clear) Urine pH 6.5 (4.5-7.5) Ur Specific Leslie 1.018 (1.000-1.030) Urine Protein Negative (Negative) Urine Glucose (UA) Negative (Negative) Urine Ketones Negative (Negative) Urine Blood Negative (Negative) Urine Nitrite Negative (Negative) Urine Bilirubin Negative (Negative) Urine Urobilinogen Negative (Negative) Ur Leukocyte Esterase Negative (Negative) Anaplasma Smear Babesia Smear Lyme Disease IgG Ab (Negative) Lyme Disease IgM Ab (Negative) SARS-CoV-2 (PCR) (Negative) Influenza Type A (PCR) (Neg) Influenza Type B (PCR) (Neg) RSV (RT-PCR) (Neg) 09/03/22 09/03/22 09/03/22 Range/Units 23:24 23:24 23:34 WBC (4.8-10.8) K/ul RBC (4.70-6.10) M/uL Hgb (14.0-18.0) g/dl Hct (42.0-52.0) % MCV (80.0-100.0) fL MCH (25.0-34.0) pg MCHC (32.0-36.0) g/dL RDW Std Deviation (36.4-46.3) fL RDW Coeff of Joy (11.5-14.5) % Plt Count (130-400) K/uL MPV (9.4-12.4) fL Immature Gran % (Auto) % Neut % (Auto) % Lymph % (Auto) % Sear[place] % (Auto) % Eos % (Auto) % Baso % (Auto) % Neut # (Auto) (1.40-6.50) K/uL Lymph # (Auto) (1.2-3.4) K/uL [place] # (Auto) (0.11-0.59) K/uL Eos # (Auto) (0-0.50) K/uL Baso # (Auto) (0-0.2) K/uL Immature Gran # (Auto) (0.01-0.20) K/uL PT (9.0-12.0) Seconds INR (0.9-1.1) APTT (21.0-31.0) Seconds PTT Ratio Sodium (136-145) mmol/L Potassium (3.5-5.1) mmol/L Chloride (98-107) mmol/L Carbon Dioxide (21-32) mmol/L Anion Gap (3-11) BUN (6-23) mg/dl Creatinine (0.6-1.4) mg/dl Est Cr Clr Drug Dosing ml/min Est GFR ( Amer) ml/min Est GFR (Non-Af Amer) ml/min BUN/Creatinine Ratio (10-20) Glucose (70-99(Fasting)) mg/dl Estimat Average Glucose 97 mg/dl Hemoglobin A1c 5.0 (4.5-5.6) % Lactate (0.4-2.0) mmol/L Calcium (8.6-10.3) mg/dl Magnesium (1.7-2.4) mg/dl Total Bilirubin (0.2-1.0) mg/dl AST (13-39) U/L ALT (7-52) U/L Alkaline Phosphatase (34-104) U/L Total Protein (6.0-8.3) gm/dl Albumin (3.4-5.0) gm/dl Globulin (2.5-4.0) gm/dl Albumin/Globulin Ratio (0.9-2) Procalcitonin (0-0.5) ng/ml Urine Color Urine Appearance (Clear) Urine pH (4.5-7.5) Ur Specific Leslie (1.000-1.030) Urine Protein (Negative) Urine Glucose (UA) (Negative) Urine Ketones (Negative) Urine Blood (Negative) Urine Nitrite (Negative) Urine Bilirubin (Negative) Urine Urobilinogen (Negative) Ur Leukocyte Esterase (Negative) Anaplasma Smear See Comment Babesia Smear See Comment Lyme Disease IgG Ab Negative (Negative) Lyme Disease IgM Ab Equivocal A (Negative) SARS-CoV-2 (PCR) (Negative) Influenza Type A (PCR) (Neg) Influenza Type B (PCR) (Neg) RSV (RT-PCR) (Neg) 09/04/22 09/04/22 Range/Units 00:00 01:14 WBC (4.8-10.8) K/ul RBC (4.70-6.10) M/uL Hgb (14.0-18.0) g/dl Hct (42.0-52.0) % MCV (80.0-100.0) fL MCH (25.0-34.0) pg MCHC (32.0-36.0) g/dL RDW Std Deviation (36.4-46.3) fL RDW Coeff of Joy (11.5-14.5) % Plt Count (130-400) K/uL MPV (9.4-12.4) fL Immature Gran % (Auto) % Neut % (Auto) % Lymph % (Auto) % [place] % (Auto) % Eos % (Auto) % Baso % (Auto) % Neut # (Auto) (1.40-6.50) K/uL Lymph # (Auto) (1.2-3.4) K/uL [place] # (Auto) (0.11-0.59) K/uL Eos # (Auto) (0-0.50) K/uL Baso # (Auto) (0-0.2) K/uL Immature Gran # (Auto) (0.01-0.20) K/uL PT (9.0-12.0) Seconds INR (0.9-1.1) APTT (21.0-31.0) Seconds PTT Ratio Sodium (136-145) mmol/L Potassium (3.5-5.1) mmol/L Chloride (98-107) mmol/L Carbon Dioxide (21-32) mmol/L Anion Gap (3-11) BUN (6-23) mg/dl Creatinine (0.6-1.4) mg/dl Est Cr Clr Drug Dosing ml/min Est GFR ( Amer) ml/min Est GFR (Non-Af Amer) ml/min BUN/Creatinine Ratio (10-20) Glucose (70-99(Fasting)) mg/dl Estimat Average Glucose mg/dl Hemoglobin A1c (4.5-5.6) % Lactate 1.4 (0.4-2.0) mmol/L Calcium (8.6-10.3) mg/dl Magnesium (1.7-2.4) mg/dl Total Bilirubin (0.2-1.0) mg/dl AST (13-39) U/L ALT (7-52) U/L Alkaline Phosphatase (34-104) U/L Total Protein (6.0-8.3) gm/dl Albumin (3.4-5.0) gm/dl Globulin (2.5-4.0) gm/dl Albumin/Globulin Ratio (0.9-2) Procalcitonin (0-0.5) ng/ml Urine Color Urine Appearance (Clear) Urine pH (4.5-7.5) Ur Specific Leslie (1.000-1.030) Urine Protein (Negative) Urine Glucose (UA) (Negative) Urine Ketones (Negative) Urine Blood (Negative) Urine Nitrite (Negative) Urine Bilirubin (Negative) Urine Urobilinogen (Negative) Ur Leukocyte Esterase (Negative) Anaplasma Smear Babesia Smear Lyme Disease IgG Ab (Negative) Lyme Disease IgM Ab (Negative) SARS-CoV-2 (PCR) NEGATIVE (Negative) Influenza Type A (PCR) Negative (Neg) Influenza Type B (PCR) Negative (Neg) RSV (RT-PCR) Negative (Neg) Administered Medications Acetaminophen (Acetaminophen 500 Mg Tab) 500 mg PO Q6H PRN PRN Reason: Pain/Fever Stop: 10/04/22 04:03 Last Admin: 09/04/22 06:46 Dose: 500 mg Documented By: SAMEER Acetaminophen (Acetaminophen 325 Mg Tab) 650 mg PO Q6H [facility] Stop: 10/04/22 13:59 Last Admin: 09/04/22 13:51 Dose: 650 mg Documented By: YAMILET Enoxaparin Sodium (Enoxaparin Inj 40 Mg/0.4 Ml Syr) 40 mg SQ QAM [facility] Stop: 10/04/22 08:59 Last Admin: 09/04/22 08:28 Dose: Not Given Documented By: YAMILET Cefepime HCl 2,000 mg/ Syringe 20 mls @ 5 mls/min IV Q8H [facility]; Protocol Stop: 09/11/22 08:59 Last Admin: 09/04/22 16:25 Dose: 5 mls/min Documented By: Admin: 09/04/22 08:27 Dose: 5 mls/min Documented By: YAMILET Daptomycin 350 mg/ Syringe 7 mls @ 3.5 mls/min IV Q24H [facility]; Protocol Stop: 09/11/22 14:44 Last Admin: 09/04/22 15:00 Dose: 3.5 mls/min Documented By: Admin: 09/04/22 14:59 Dose: 5 mls/min Documented By: YAMILET Ketorolac Tromethamine (Ketorolac Tromethamine 15 Mg/Ml Vial) 15 mg IV Q6H PRN PRN Reason: Pain Stop: 09/09/22 04:03 Last Admin: 09/04/22 08:05 Dose: 15 mg Documented By: YAMILET Miscellaneous (Remove Nicoderm Patch) 1 each N/A DAILY@0859 [facility] Stop: 10/04/22 08:58 Last Admin: 09/04/22 08:06 Dose: 1 each Documented By: YAMILET Nicotine (Nicotine 21 Mg/24 Hr Tdsy) 21 mg TD QAM [facility] Stop: 10/04/22 08:59 Last Admin: 09/04/22 08:27 Dose: 21 mg Documented By: YAMILET Oxycodone HCl (Oxycodone Hcl Ir 5 Mg Tab (Immediate Release)) 5 - 10 mg PO QID PRN PRN Reason: Pain Stop: 09/18/22 04:03 Last Admin: 09/04/22 13:10 Dose: 10 mg Documented By: Admin: 09/04/22 06:46 Dose: 10 mg Documented By: SAMEER Discontinued Medications Acetaminophen (Acetaminophen 500 Mg Tab) 1,000 mg PO NOW STA Stop: 09/04/22 02:36 Last Admin: 09/04/22 02:40 Dose: 1,000 mg Documented By: SATYA Sodium Chloride (Nss 1000ml) 2,000 mls @ 999 mls/hr IV .Q2H1M ONE Stop: 09/04/22 02:23 Last Infusion: 09/04/22 02:28 Dose: 0 mls/hr Documented By: Admin: 09/04/22 00:26 Dose: 999 mls/hr Documented By: SATYA Cefepime HCl (Maxipime) 2,000 mg in 20 mls @ 5 mls/min IV NOW STA; Protocol Stop: 09/04/22 00:40 Last Admin: 09/04/22 00:55 Dose: 5 mls/min Documented By: SATYA Vancomycin HCl 2,500 mg/ (Sodium Chloride) 550 mls @ 180 mls/hr IV NOW STA Stop: 09/04/22 04:32 Last Infusion: 09/04/22 04:42 Dose: 0 mls/hr Documented By: Admin: 09/04/22 01:35 Dose: 180 mls/hr Documented By: SATYA Sodium Chloride (Nss 1000ml) 1,000 mls @ 999 mls/hr IV .Q1H1M ONE Stop: 09/04/22 02:41 Last Infusion: 09/04/22 03:15 Dose: 0 mls/hr Documented By: Admin: 09/04/22 02:06 Dose: 999 mls/hr Documented By: SATYA Doxycycline Hyclate 100 mg/ (Dextrose) 110 mls @ 50 mls/hr IV NOW STA Stop: 09/04/22 03:53 Last Infusion: 09/04/22 04:41 Dose: 0 mls/hr Documented By: Admin: 09/04/22 02:29 Dose: 50 mls/hr Documented By: SATYA Magnesium Sulfate/Dextrose (Magnesium Sulfate / D5w) 1 gm in 100 mls @ 50 mls/hr IV ONE STA Stop: 09/04/22 05:25 Last Infusion: 09/04/22 06:46 Dose: 0 mls/hr Documented By: Admin: 09/04/22 04:54 Dose: 50 mls/hr Documented By: SATYA Potassium Chloride/Sodium Chloride (Normal Saline W/20 Meq Kcl) 20 meq in 1,000 mls @ 80 mls/hr IV .[id number] STA; Protocol Stop: 09/04/22 15:55 Last Infusion: 09/04/22 17:54 Dose: 0 mls/hr Documented By: Admin: 09/04/22 04:54 Dose: 80 mls/hr Documented By: SATYA Ioversol (Optiray 320 100ml) 94 ml IV ONCE ONE Stop: 09/04/22 01:27 Last Admin: 09/04/22 01:21 Dose: 94 ml Documented By: FAVIAN Ketorolac Tromethamine (Ketorolac 30 Mg/Ml Vial) 30 mg IV NOW ONE Stop: 09/04/22 00:35 Last Admin: 09/04/22 01:34 Dose: 30 mg Documented By: SATYA Nicotine (Nicotine 21 Mg/24 Hr Tdsy) 21 mg TD ONE STA Stop: 09/04/22 04:12 Last Admin: 09/04/22 04:54 Dose: 21 mg Documented By: SATYA Ondansetron HCl (Ondansetron Inj 2 Mg/Ml 2 Ml Vial) 4 mg IV NOW STA Stop: 09/04/22 00:35 Last Admin: 09/04/22 01:34 Dose: 4 mg Documented By: SATYA Imaging Data Radiologist's Impression: Chest X-Ray 09/03/22 23:10 XR chest 1V not portable HISTORY: Sepsis COMPARISON: Chest 03/25/2021. FINDINGS: The lungs are clear. Cardiac silhouette is normal in size. No pleural effusions. No pneumothorax. IMPRESSION: No acute process. ACT 112: Negative or not required by law. Electronically signed by: Jose Denise M.D. 09/04/2022 8:02 AM Liver Ultrasound 09/04/22 03:58 ABDOMINAL ULTRASOUND, RIGHT UPPER QUADRANT HISTORY: Abnormal LFTs.. COMPARISON: Abdomen and pelvis CT 09/04/2022. FINDINGS: Pancreas: The pancreatic head and tail are obscured by overlying bowel gas. The remaining portions of the pancreas are within normal limits. Liver: Unremarkable. Gallbladder: No gallbladder wall thickening. No gallstones. The gallbladder is contracted. CBD: 3 mm. Right kidney: No hydronephrosis. IMPRESSION: No significant abnormality identified within the right upper quadrant. ACT 112: Negative or not required by law. Electronically signed by: Jose Denise M.D. 09/04/2022 8:01 AM Scrotum Ultrasound 09/04/22 03:58 TESTICULAR ULTRASOUND HISTORY: Right scrotal swelling COMPARISON: None. FINDINGS: Right testis: 54 x 36 x 22 mm. A few punctate microliths are noted. There are no intratesticular masses. Normal color flow. A few small epididymal head cysts up to 7 mm. Trace hydrocele. Asymmetric thickening within the scrotal wall with increased vascularity. No loculated fluid collections to suggest an abscess. Left testis: 50 x 31 x 23 mm. A few scattered microliths are noted. There are no intratesticular masses. Normal color flow. No hydrocele. The epididymis is unremarkable. IMPRESSION: 1. Asymmetric thickening within the scrotal wall with increased vascularity. This suggests a cellulitis. No loculated fluid collections to suggest an absces s. 2. No scrotal masses. 3. Trace right hydrocele. ACT 112: Negative or not required by law. Electronically signed by: Jose Denise M.D. 09/04/2022 8:00 AM Discharge Plan Visit Data Chief Complaint: Fever Stated Complaint: BIT IN TESTICLES ED Provider: Renay Sandoval Discharge Problem: Severe sepsis, Cellulitis of scrotum, Insect bite of scrotum Patient Disposition: Admitted As Inpatient Discharge Instructions Interventions: ED Discharge Assessment Last Done: 09/04/22 05:10
[2022-09-04] MEDS: DOXYCYCLINE HYCLATE 100 MG CAP PO SCH (20:17)
--- NOTE | 2022-09-04 21:20 | Electrocardiogram Report ---
Test Reason : Blood Pressure : / mmHG Vent. Rate : 115 BPM Atrial Rate : 115 BPM P-R Int : 136 ms QRS Dur : 076 ms QT Int : 314 ms P-R-T Axes : 047 010 039 degrees QTc Int : 434 ms Sinus tachycardia Otherwise normal ECG When compared with ECG of 06-DEC-2017 10:44, No significant change was found Confirmed by Noe Hampton ([id number]) on 09/04/2022 9:20:01 PM Referred By: REFERRED SELF Confirmed By:Noe Hampton
[2022-09-05] MEDS: ACETAMINOPHEN 325 MG TAB PO SCH ×4 (02:50→19:48)
[2022-09-05] MEDS: CEFEPIME 2,000 MG in SYRINGE 0 ML IV SCH ×2 (02:51→10:32)
[2022-09-05] MEDS: oxyCODONE HCL IR 5 MG TAB (IMMEDIATE RELEASE) PO PRN ×3 (02:51→16:43)
[2022-09-05] MEDS ORDERED: fentaNYL citrate PF 100 MCG/2 ML VIAL ONE ×2 (06:31→07:50)
[2022-09-05] MEDS ORDERED: ONDANSETRON INJ 2 MG/ML 2 ML VIAL ONE (06:31)
[2022-09-05] MEDS ORDERED: MIDAZOLAM HCL 1 MG/ML 2ML VIAL ONE (06:31)
[2022-09-05] MEDS ORDERED: DEXAMETHASONE SOD INJ 4 MG/ML VIAL ONE (06:31)
[2022-09-05] MEDS ORDERED: PROPOFOL IV EMULSION 10 MG/ML 20 ML VIAL IV ONE (06:31)
[2022-09-05] MEDS ORDERED: LIDOCAINE 2% 2 ML VIAL/AMP(20MG/ML) INFIL ONE (06:31)
[2022-09-05] MEDS ORDERED: ONDANSETRON INJ 2 MG/ML 2 ML VIAL IV PRN (06:49)
[2022-09-05] MEDS ORDERED: ePHEDrine sulfate 50 MG/ML AMP IV PRN (06:49)
[2022-09-05] MEDS ORDERED: ATROPINE SULFATE 0.1 MG/ML 10ML SYR IV PRN (06:49)
[2022-09-05] MEDS ORDERED: fentaNYL citrate PF 100 MCG/2 ML VIAL IV PRN (06:49)
--- NOTE | 2022-09-05 06:49 | Anesthesiology Consultation ---
Date of Service September 05, 2022 Assessment & Plan (1) Encounter for pre-operative examination: Chart Review Chart Review: Acceptable Risk for Surgery and Patient NOT seen in Pre Admission Testing Consults Requested none History Surgery Operation Date: 09/05/22 07:30 Proposed Procedures p Scrotal Hydrocelectomy - Ruben Avina, Height/Weight Height: 5 ft 9 in Weight: 101 kg Allergies Allergy/AdvReac Type Severity Reaction Status Date / Time meperidine Allergy Severe SOB, Verified 09/04/22 02:21 SWELLING OF THROAT methocarbamol Allergy Severe SOB, Verified 09/04/22 02:21 SWELLING OF THROAT tramadol Allergy Severe SOB, Verified 09/04/22 02:21 SWELLING OF THROAT Medications Home Medications Medication Instructions Recorded Confirmed Last Taken acetaminophen 325 mg tablet 650 mg PO Q4H PRN PAIN/FEVER 09/04/22 09/04/22 Unknown (Tylenol) ibuprofen 200 mg tablet (Advil) 400 mg PO Q6H PRN FEVER/PAIN 09/04/22 09/04/22 Unknown Active Medications Generic Name Dose Route Start Last Admin Trade Name Freq PRN Reason Stop Dose Admin Acetaminophen 500 mg 09/04/22 04:04 09/04/22 06:46 Acetaminophen 500 Mg Tab PO 10/04/22 04:03 500 mg Q6H PRN Administration Pain/Fever Acetaminophen 650 mg 09/04/22 14:00 09/05/22 02:50 Acetaminophen 325 Mg Tab PO 10/04/22 13:59 650 mg Q6H NICOLE Administration Doxycycline Hyclate 100 mg 09/04/22 21:00 09/04/22 20:17 Doxycycline Hyclate 100 Mg Cap PO 09/11/22 20:59 100 mg BID NICOLE Administration Enoxaparin Sodium 40 mg 09/04/22 09:00 09/04/22 08:28 Enoxaparin Inj 40 Mg/0.4 Ml Syr SQ 10/04/22 08:59 Not Given QAM NICOLE Cefepime HCl 2,000 mg/ Syringe 20 mls @ 5 mls/min 09/04/22 09:00 09/05/22 02:51 IV 09/11/22 08:59 5 mls/min Q8H NICOLE Administration Protocol Daptomycin 350 mg/ Syringe 7 mls @ 3.5 mls/min 09/04/22 14:45 07/01/23 15:00 IV 09/11/22 14:44 3.5 mls/min Q24H NICOLE Administration Protocol Ketorolac Tromethamine 15 mg 09/04/22 04:04 09/04/22 08:05 Ketorolac Tromethamine 15 Mg/Ml Vial IV 09/09/22 04:03 15 mg Q6H PRN Administration Pain Miscellaneous 1 each 09/04/22 08:59 09/04/22 08:06 Remove Nicoderm Patch N/A 10/04/22 08:58 1 each [id number] NICOLE Administration Nicotine 21 mg 09/04/22 09:00 09/04/22 08:27 Nicotine 21 Mg/24 Hr Tdsy TD 10/04/22 08:59 21 mg QAM NICOLE Administration Oxycodone HCl 5 - 10 mg 09/04/22 04:04 09/05/22 02:51 Oxycodone Hcl Ir 5 Mg Tab (Immediate Release) PO 09/18/22 04:03 10 mg QID PRN Administration Pain Past Medical History Medical History No significant medical problems Past Surgical History Surgical History No pertinent past surgical history Social History Smoking Status: Current every day smoker tobacco type: cigarettes Do You Dip or Chew Tobacco: No Hx Alcohol Use: Yes Alcohol type: hard liquor alcohol intake frequency: a few times a month Hx Substance Use: No Physical Exam Vital Signs Last Vital Signs Temp 98.6 F 09/05/22 02:56 Pulse 95 H 09/05/22 02:56 Resp 14 09/05/22 02:56 BP 110/70 09/05/22 02:56 Pulse Ox 96 09/04/22 22:52 O2 Del Method Room Air 09/05/22 02:56 Testing Laboratory Results 09/04/22 07:06 09/04/22 07:06 PT 11.0 Seconds (9.0-12.0) 09/03/22 23:24 INR 1.0 (0.9-1.1) 09/03/22 23:24 APTT 30.0 Seconds (21.0-31.0) 09/03/22 23:24 Hemoglobin A1c 5.0 % (4.5-5.6) 09/03/22 23:34 Urine Color Yellow 09/03/22 23:24 Urine Appearance Clear (Clear) 09/03/22 23:24 Urine pH 6.5 (4.5-7.5) 09/03/22 23:24 Ur Specific [place] 1.018 (1.000-1.030) 09/03/22 23:24 Urine Protein Negative (Negative) 09/03/22 23:24 Urine Glucose (UA) Negative (Negative) 09/03/22 23:24 Urine Ketones Negative (Negative) 09/03/22 23:24 Urine Nitrite Negative (Negative) 09/03/22 23:24 Ur Leukocyte Esterase Negative (Negative) 09/03/22 23:24 09/04/22 00:10 Aerobic Blood Culture - Preliminary Blood No growth in Aerobic bottle after 24 hours. Anaerobic Blood Culture - Preliminary No growth in Anaerobic bottle after 24 hours. 09/03/22 23:24 Aerobic Blood Culture - Preliminary Blood No growth in Aerobic bottle after 24 hours. Anaerobic Blood Culture - Preliminary No growth in Anaerobic bottle after 24 hours.
[2022-09-05] MEDS ORDERED: ACETAMINOPHEN 1000 MG/100 ML IV IV ONE (07:07)
--- NOTE | 2022-09-05 07:26 | Urology Progress Note ---
Date of Service September 05, 2022 Assessment & Plan (1) Sepsis: (2) Scrotal abscess: Plan Patient admitted with sepsis. Found to have scrotal abscess. Abscess had significant induration but no considerable tracking and no severe erythema. At the area appeared to be significantly tender. It did not have any considerable areas of fluctuation and no obvious fluid cavity however patient did have a area of darkened/discolored skin at the apex of the likely abscess. This tissue did have a concern for forming eschar possibly from skin necrosis. Patient is on broad-spectrum antibiotics and is receiving supportive care and is not being monitored closely with close management. Currently vitals have stabilized. Mild tachycardia. Temp is currently 37.0 Tmax was 39.0 at admission. Patient's labs were all reviewed. No major change. White count down on abx. All other labs are reviewed pertinent pertinent values in the HPI and in the plan section. Discussed concern related to possible skin necrosis from pressure from induration and abscess. Discussed possible options moving forward. Extensively reviewed options including surgical drainage. Discussed extensively need for healing by secondary intent in order to heal the area. Discussed concerns and issues. All questions answered. Risks and benefits discussed at length for procedure. These include bleeding, infection, injury to surrounding tissues or organs, and risks associated with anesthesia. Patient states understanding and agrees to proceed. Will sign consent and proceed. Plan for scrotal exploration, possible Debridement. possible incision vs excision and drainage. Will proceed. Admission and Anticipated Discharge Date Admission Date: September 04, 2022 Subjective Patient admitted with scrotal abscess with pain, tenderness, and discomfort. Patient is afebrile. Has been undergoing broad spectrum abx with IV medications, IV fluids, and oral intake. Abscess still painful. Has not resolved or spontaneously drained. Has not developed severe vomiting or other issues. Has not experienced fever or chills. NPO last evening. Is tolerating fluids. Has not had severe pain in the scrotum or considerable spreading. Does have occasional burning and irritation. No severe episodes or major changes. Has not passed or drained blood or debris. Review of Systems Review of Systems: All systems reviewed & are unremarkable except as noted in HPI & below Physical Exam Physical Exam: General: Alert and oriented x 3 in no acute distress. HEENT: Normocephalic Atraumatic. Inspection normal. Cranial Nerves 2-12 Grossly intact. Nares are clear. Neck is supple. Normal inspection of face. Normal inspection of neck. Neurologic: No deficits on inspection. Baseline for motor function and sensory. Psychologic: Normal affect. Respiratory: Nonlabored. No use of accessory muscles. No tachypnea or dyspnea. Cardiovascular: No tachycardia Skin: [place] and Dry. No rashes or visible lesions. Extremities: Moving without issues. No motor deficits on inspection Lymphatics: No edema Abdomen: Soft Non-distended. No rebound or guarding. : Normal phallus. Normal testicular exam without mass or lesion. Possible small hydrocele. Approximately 2.8 cm indurated area on the posterior portion of the scrotum near the dependent portion of the scrotum along the midline with mild erythema. No considerable tracking or spread along the tissue. No obvious or significant fluctuance. Darkened possibly a vascular/eschar area approximately 8 mm x 11 mm in size at the apex of the induration. Results & Data Vital Signs (Past 12 Hours) Vital Signs Temp Pulse Pulse Pulse Resp BP Pulse Ox 09/05/22 01:00 90 09/05/22 02:56 37 C 95 H 14 110/70 09/04/22 22:52 37.2 C 99 H 16 114/74 96 O2 Del Method 09/05/22 01:00 09/05/22 02:56 Room Air 09/04/22 22:52 Room Air PG Care Time/CCT Total # of Minutes Spent Total Time Spent with Patient: Total time spent is greater than 50% in coordination of care (as documented) at patient's floor/unit and/or counseling patient: Coding Level of Care Code 63723 SUB INP/OBS CARE 3/50MIN Diagnoses Sepsis A41.9 Scrotal abscess N49.2
[2022-09-05] MEDS ORDERED: LIDOCAINE 1%/EPINEPHRINE 1:100,000 20 ML VIAL ONE (07:47)
--- NOTE | 2022-09-05 08:10 | Operative Report ---
[facility] Post Operative Report Pre & Post Diagnosis Operation Date: 09/05/22 07:30 Pre-Op Diagnosis: SEPSIS, Scrotal Abscess, Necrosis Same I identified the patient and participated in the time-out.: Yes Procedure Excision and Drainage of Scrotal Abscess. Debridement of necrotic skin Operation Date: 09/05/22 07:30 <No data on this case meets the specified criteria> Surgeon Ruben Avina, II, DO Fire Prevention Chief None Estimated Blood Loss 5 Findings Consistent with Post-Op Diagnosis Necrotic ulceration of tissue over flucuant abscess without drainage just right of midline on scrotum. Area dimension 4.4 x 3.4 cm Elliptical Excision of Necrotic tissue/skin - 3.4 cm x 1.6 cm. Abscess opening 3.4 x 1.6 x 3.3 cm (depth) Specimens Culture Swab - Deep Excision of Necrotic Skin Drains 1/2 in Iodoform Packing Anesthesia Type General Complications none Disposition Disposition: Recovery Room Indications Bothersome abscess with skin necrosis. Risks and benefits discussed at length. Description of Procedure Patient was consented and brought back to the operating room. Patient was placed under anesthesia in the supine position. Patient was prepped and draped in the regular sterile fashion. A time out was completed. With the time out completed and the patient prepped, the abscess area and necrotic tissue was marked with elliptical marking and local injected into the subcutaneous tissues. A cord block was completed at the scrotal junction. An incision was made with a scalpel to completely excise the necrotic skin and the deep tissues were dissected with bovie electrocautery. A culture swab was taken of the deep cavity. This was sent for microanalysis. The necrotic tissue that was excised was sent for pathologic analysis. The wound was washed copiously with saline solution. The final dimensions were noted. The entire abscess cavity and surround tissue was excised without considerable drainage. The underlying tissues and skin edges were bleeding freely without major issues. All bleeding was controlled with mild cautery. The scrotum was irrigated and all bleeding controlled. The entire area was examined. The deep tissues were partially closed at the edges with an interrupted 3-0 chromic suture. The cavity was left open. The edges of the incision were closed with interrupted 3- 0 Chromic suture with a horizontal mattress stitch. The final incision length was 3.6 cm with an opening of 2.3 cm 1/2 in Iodoform packing was folded and placed into the cavity with both ends visible and accessible at the opening. The area was cleaned. Bandages placed. A scrotal support was placed with dressings. The patient was cleaned, aroused from anesthesia, and transferred to the pacu in stable condition having tolerated the procedure well with no complications. I was present and participated in all aspects of the procedure. Plan to remove and exchange packing in 24-48 hours. Plan to continue broad spe ctrum abx and await cultures to de-esculate. May need wound care assistance depending on wound assessments post operatively. Likely followup in approx 2-3 weeks. I attest to the content of the Intraoperative Record and any orders documented therein. Any exceptions are noted below.
--- NOTE | 2022-09-05 09:34 | Anesthesiology Progress Note ---
Date of Service September 05, 2022 Anesthesia Post Procedure Vital Signs Vital Signs: Temp Pulse Pulse Pulse Pulse Pulse Resp 09/05/22 09:25 98.1 F 101 H 16 09/05/22 08:30 90 17 09/05/22 08:20 94 H 18 09/05/22 08:50 88 17 09/05/22 08:40 97.3 F L 98 H 18 09/05/22 08:10 97.2 F L 100 H 20 09/05/22 01:00 90 09/05/22 02:56 98.6 F 95 H 14 09/04/22 22:52 99.0 F 99 H 16 09/04/22 15:14 104 H 09/04/22 15:00 98.6 F 99 H 18 09/04/22 11:43 99.0 F 82 18 09/04/22 10:37 103 H BP Pulse Ox O2 Del Method O2 Flow Rate 09/05/22 09:25 108/78 94 Room Air 09/05/22 08:30 119/76 95 Oxymask 6 09/05/22 08:20 109/78 96 Oxymask 6 09/05/22 08:50 105/77 95 Nasal Cannula 2 09/05/22 08:40 117/75 95 Nasal Cannula 2 09/05/22 08:10 119/69 100 Oxymask 6 09/05/22 01:00 09/05/22 02:56 110/70 Room Air 09/04/22 22:52 114/74 96 Room Air 09/04/22 15:14 09/04/22 15:00 113/72 98 Room Air 09/04/22 11:43 113/70 94 Room Air 09/04/22 10:37 Pain Intensity Scrotal: Pain Intensity: 7 Transfer of Care Handoff Completed per policy Notes Mental Status: alert / awake / arousable and participated in evaluation Patient Amnestic to Procedure: Yes Nausea / Vomiting: adequately controlled Pain: adequately controlled Airway Patency, RR, SpO2: stable & adequate BP & HR: stable & adequate Hydration State: stable & adequate Anesthetic Complications: no major complications apparent and Pt Satisfied with anesthetic care
[2022-09-05] MEDS: ADVANCED PROBIOTIC 1250 MG CAPSULE PO SCH (10:33)
[2022-09-05] MEDS: DOXYCYCLINE HYCLATE 100 MG CAP PO SCH ×2 (10:33→19:48)
[2022-09-05] MEDS: ENOXAPARIN INJ 40 MG/0.4 ML SYR SQ SCH ×2 (10:34→10:43)
[2022-09-05] MEDS: NICOTINE 21 MG/24 HR TDSY TD SCH (10:35)
[2022-09-05] MEDS ORDERED: SCOPOLAMINE 1 MG TDSY TD ONE (12:26)
[2022-09-05] MEDS: DAPTOmycin 350 MG in SYRINGE 0 ML IV SCH (14:42)
--- NOTE | 2022-09-05 15:56 | Hospitalist Progress Note ---
Date of Service September 05, 2022 Assessment & Plan (1) Sepsis: Plan: Severe sepsis SIRS plus lactic acidosis Secondary to scrotal cellulitis -- blood culture: negative -- Scrotum US: 1. Asymmetric thickening within the scrotal wall with increased vascularity. This suggests a cellulitis. No loculated fluid collections to suggest an abscess. 2. No scrotal masses. . Trace right hydrocele. --Lyme screen protocol, Western blot pending Anaplasmosis test pending --Status post I&D daily by urologist Drainage culture pending --Still having episodes of fever overnight and pain -- continue daptomycin,, doxycycline Transition from cefepime to Zosyn Transaminitis, also noted on outpatient blood work, possible fatty liver disease Mood disorder, currently stable off maintenance medications Ongoing tobacco abuse DVT prophylaxis. Lovenox subcu Full code plan of care discussed with patient in detail and at length all questions answered he is understanding, agreeable, comfortable with the plan of care Admission and Anticipated Discharge Date Admission Date: September 04, 2022 Subjective Follow-up for scrotal abscess, cellulitis, etc. Seen resting in bed, comfortable Not in distress Status post I&D today of scrotal abscess States he is having some discomfort over the scrotal area but abdominal pain s eems to be less Still having some right inguinal pain Review of Systems Review of Systems: all noted and negative except for above Physical Exam Physical Exam: General- oriented x 3, not in distress, speaks in sentences with no effort or accessory muscle use Eyes- anicteric Neck- no JVD Lungs- clear breath sounds, no crackles or wheezing bilaterally Heart- normal rate, regular rhythm; no murmurs Abdomen- normal bowel sounds, nondistended, soft, no tenderness Extremities- no pretibial edema, no calf tenderness Scrotal exam-dressing in place Neuro- alert, oriented x 3; no gross focal neurologic deficits Skin- warm & dry Results & Data Results & Data Vital Signs (Past 12 Hours) Vital Signs Temp Pulse Pulse Pulse Pulse Pulse Resp 09/05/22 15:25 86 09/05/22 08:00 89 09/05/22 15:11 36.6 C 84 20 09/05/22 11:25 36.8 C 104 H 18 09/05/22 10:25 36.7 C 89 20 09/05/22 09:53 36.9 C 94 H 09/05/22 09:25 36.7 C 101 H 16 09/05/22 08:30 90 17 09/05/22 08:20 94 H 18 09/05/22 08:50 88 17 09/05/22 08:40 36.3 C L 98 H 18 09/05/22 08:10 36.2 C L 100 H 20 BP Pulse Ox O2 Del Method O2 Flow Rate 09/05/22 15:25 09/05/22 08:00 09/05/22 15:11 111/74 95 Room Air 09/05/22 11:25 119/68 95 Room Air 09/05/22 10:25 115/75 98 Room Air 09/05/22 09:53 116/77 97 Room Air 09/05/22 09:25 108/78 94 Room Air 09/05/22 08:30 119/76 95 Oxymask 6 09/05/22 08:20 109/78 96 Oxymask 6 09/05/22 08:50 105/77 95 Nasal Cannula 2 09/05/22 08:40 117/75 95 Nasal Cannula 2 09/05/22 08:10 119/69 100 Oxymask 6 all noted and reviewed including below
[2022-09-05] MEDS ORDERED: PIPERACILLIN/TAZOBACTAM 4.5 GM (over 30 mins) IV ONE (16:15)
[2022-09-05] MEDS ORDERED: POLYETHYLENE (MIRALAX) 17 GM PACK PO PRN (19:59)
[2022-09-05] MEDS: PIPERACILLIN/TAZOBACTAM 4.5 GM in DEXTROSE 5% 100 ML IV SCH (20:06)
[2022-09-05] MEDS: DOCUSATE SODIUM/SENNA 50/8.6MG TAB PO SCH (20:06)
[2022-09-06] MEDS: ACETAMINOPHEN 325 MG TAB PO SCH ×4 (03:05→20:32)
[2022-09-06] MEDS: PIPERACILLIN/TAZOBACTAM 4.5 GM in DEXTROSE 5% 100 ML IV SCH ×3 (04:39→20:33)
[2022-09-06] MEDS: oxyCODONE HCL IR 5 MG TAB (IMMEDIATE RELEASE) PO PRN ×3 (04:39→20:32)
[2022-09-06] MEDS: DOXYCYCLINE HYCLATE 100 MG CAP PO SCH ×2 (08:02→20:33)
[2022-09-06] MEDS: NICOTINE 21 MG/24 HR TDSY TD SCH (08:02)
[2022-09-06] MEDS: ADVANCED PROBIOTIC 1250 MG CAPSULE PO SCH (08:03)
[2022-09-06] MEDS: DOCUSATE SODIUM/SENNA 50/8.6MG TAB PO SCH (08:03)
[2022-09-06] MEDS: ENOXAPARIN INJ 40 MG/0.4 ML SYR SQ SCH (08:04)
[2022-09-06 10:15] LABS: Basophils # (auto) 0.04 K/uL (0-0.2); Basophils % (auto) 0.4 %; Eosinophils # (auto) 0.33 K/uL (0-0.50); Eosinophils % (auto) 3.2 %; Hematocrit (blood only) 40.3 % (42.0-52.0); Hemoglobin 13.9 g/dl (14.0-18.0); Immature Granulocytes # (auto) 0.03 K/uL (0.01-0.20); Immature Granulocytes % (auto) 0.3 %; Lymphocytes # (auto) 1.65 K/uL (1.2-3.4); Lymphocytes % (auto) 16.2 %; Mean Corpuscular Hemoglobin 27.9 pg (25.0-34.0); Mean Corpuscular Hgb Conc 34.5 g/dL (32.0-36.0); Mean Corpuscular Volume 80.9 fL (80.0-100.0); Mean Platelet Volume 9.6 fL (9.4-12.4); Monocytes # (auto) 1.22 K/uL (0.11-0.59); Neutrophils # (auto) 6.89 K/uL (1.40-6.50); Neutrophils % (auto) 67.9 %; Platelet Count 258 K/uL (130-400); RDW Coefficient of Variation 13.5 % (11.5-14.5); Red Blood Count 4.98 M/uL (4.70-6.10); White Blood Count 10.16 K/ul (4.8-10.8)
[2022-09-06 10:32] LABS: Albumin Globulin Ratio 1.3 (0.9-2); Albumin Level 3.3 gm/dl (3.4-5.0); BUN Creatinine Ratio 10.6 (10-20); Bilirubin,Total 0.7 mg/dl (0.2-1.0); Creatinine Clr Calc Pharmacy 113.3 ml/min; Est GFR (African American) 105.1 ml/min; Est GFR (Non-African American) 90.7 ml/min; Globulin 2.5 gm/dl (2.5-4.0); Potassium 3.9 mmol/L (3.5-5.1); Total Protein 5.8 gm/dl (6.0-8.3)
[2022-09-06] MEDS: KETOROLAC TROMETHAMINE 15 MG/ML VIAL IV PRN ×2 (11:28→19:21)
--- NOTE | 2022-09-06 11:35 | Urology Progress Note ---
Date of Service September 06, 2022 Assessment & Plan (1) Scrotal abscess: Plan: Patient POD 1 status post excision and drainage of scrotal abscess, Debridement of necrotic skin with Dr. Avina. Patient subjectively feeling better today. Afebrile and hemodynamically stable. Today's labsnormal creatinine, WBC trending down (10.16). Blood cultures are showing no growth x48 hours Wound culture prelim no growth to date. I removed wound packing and exchanged iodoform packing at bedside this AM. Patient tolerated procedure and no complications noted. Wound edges appear healthy. Plan to remove and exchange packing in another 24-48 hours or sooner as needed - can be done by nursing prior to discharge. Continue antibiotics and await cultures to de-escalate. Patient can likely be discharged tomorrow on antibiotics. Patient and his can be taught to exchange packing if they are comfortable. Or can set up wound care after discharge. Will arrange hospital f/u with our service in 2-3 weeks. Admission and Anticipated Discharge Date Admission Date: September 04, 2022 Subjective Patient seen and examined at bedside this morning. He is awake, alert and resting in bed. Subjectively feeling better today. Notes some scrotal discomfort, tolerable. Denies fever or chills. No nausea or vomiting. Today's labscreatinine 1.04, WBC 10.16, hemoglobin 13.9. Blood cultures showing no growth x48 hours, wound cultures prelim no growth. Review of Systems Constitutional: as per Subjective / HPI Gastrointestinal: as per Subjective / HPI Genitourinary: + as per Subjective / HPI Physical Exam Physical Exam: General: well-appearing, no acute distress HEENT: Normocephalic, mucous membranes moist Pulmonary: Nonlabored respirations Abdomen: Nondistended Extremities: Moves all 4 spontaneously Neuro: No gross deficits Psych: alert and oriented, normal mood Skin: Warm, dry, no rashes noted : mild right scrotal edema, mild tenderness to palpation, no crepitus or eschar noted. Serosanguinous drainage on outer gauze. Packing was removed using about 7 mL of sterile saline. Wound edges appear healthy. 1/2 inch Iodoform packing replaced, less packing needed. Patient tolerated procedure. Results & Data Vital Signs (Past 12 Hours) Vital Signs Temp Pulse Resp BP Pulse Ox O2 Del Method 09/06/22 07:22 36.6 C 81 18 129/89 96 Room Air 09/06/22 04:21 36.4 C L 76 16 118/79 96 Room Air PG Care Time/CCT Total # of Minutes Spent Total Time Spent with Patient: Total time spent is greater than 50% in coordination of care (as documented) at patient's floor/unit and/or counseling patient: Coding Level of Care Code 38964 SUB INP/OBS CARE 2/35MIN Diagnoses Scrotal abscess N49.2 Time Spent (min) 36
[2022-09-06] MEDS: DAPTOmycin 350 MG in SYRINGE 0 ML IV SCH (14:59)
--- NOTE | 2022-09-06 18:22 | Hospitalist Progress Note ---
Date of Service September 06, 2022 Assessment & Plan (1) Sepsis: Plan: Severe sepsis SIRS plus lactic acidosis Secondary to scrotal cellulitis -- blood culture: negative -- Scrotum US: 1. Asymmetric thickening within the scrotal wall with increased vascularity. This suggests a cellulitis. No loculated fluid collections to suggest an abscess. 2. No scrotal masses. . Trace right hydrocele. --Lyme screen protocol, Western blot pending Anaplasmosis test pending --Status post I&D daily by urologist Drainage culture: No growth today Blood cultures: Negative --Afebrile, clinically improving -- continue daptomycin,, doxycycline, Zosyn Continue packing, further management per general surgery Records reviewed, patient's last Tdap was 10 years ago, will administer Tdap Transaminitis, also noted on outpatient blood work, possible fatty liver disease Mood disorder, currently stable off maintenance medications Ongoing tobacco abuse DVT prophylaxis. Lovenox SC Full code plan of care discussed with patient in detail and at length all questions answered he is understanding, agreeable, comfortable with the plan of care Admission and Anticipated Discharge Date Admission Date: September 04, 2022 Subjective Follow-up for sepsis, scrotal abscess, cellulitis, etc. Seen resting in bed, comfortable, not in distress States he feels improved today compared to yesterday Pain over the abdominal wall area and right inguinal/thigh area resolved Has significant pain with packing change today No problems with voiding No fever or chills No nausea or vomiting, appetite is good No other symptoms Review of Systems Review of Systems: all noted and negative except for above Physical Exam Physical Exam: General- oriented x 3, not in distress, speaks in sentences with no effort or accessory muscle use Eyes- anicteric Neck- no JVD Lungs- clear BS BL Heart- normal rate, regular rhythm; no murmurs Abdomen- normal bowel sounds, nondistended, soft, no tenderness Positive heavy dressing on the scrotum area Extremities- no pretibial edema, no calf tenderness Neuro- alert, oriented x 3; no gross focal neurologic deficits Skin- warm & dry Results & Data Results & Data Vital Signs (Past 12 Hours) Vital Signs Temp Pulse Pulse Resp BP Pulse Ox O2 Del Method 09/06/22 15:00 84 09/06/22 14:57 36.7 C 81 18 120/69 98 Room Air 09/06/22 08:00 77 09/06/22 10:52 36.6 C 85 18 122/77 96 Room Air 09/06/22 07:22 36.6 C 81 18 129/89 96 Room Air all noted and reviewed including below
[2022-09-07] MEDS: ACETAMINOPHEN 325 MG TAB PO SCH ×2 (00:58→08:35)
[2022-09-07] MEDS: PIPERACILLIN/TAZOBACTAM 4.5 GM in DEXTROSE 5% 100 ML IV SCH (05:18)
[2022-09-07] MEDS: oxyCODONE HCL IR 5 MG TAB (IMMEDIATE RELEASE) PO PRN ×2 (06:19→13:23)
[2022-09-07 07:03] LABS: Albumin Globulin Ratio 1.2 (0.9-2); BUN Creatinine Ratio 13.7 (10-20); Bilirubin,Total 0.6 mg/dl (0.2-1.0); Calcium 8.5 mg/dl (8.6-10.3); Est GFR (African American) 117.2 ml/min; Est GFR (Non-African American) 101.1 ml/min; Globulin 2.6 gm/dl (2.5-4.0); Potassium 4.6 mmol/L (3.5-5.1); Total Protein 5.6 gm/dl (6.0-8.3)
[2022-09-07] MEDS: DOXYCYCLINE HYCLATE 100 MG CAP PO SCH (08:35)
[2022-09-07] MEDS: ADVANCED PROBIOTIC 1250 MG CAPSULE PO SCH (08:35)
[2022-09-07] MEDS: DOCUSATE SODIUM/SENNA 50/8.6MG TAB PO SCH (08:35)
[2022-09-07] MEDS: NICOTINE 21 MG/24 HR TDSY TD SCH (08:36)
[2022-09-07] MEDS: ENOXAPARIN INJ 40 MG/0.4 ML SYR SQ SCH (08:36)
--- NOTE | 2022-09-07 09:26 | Urology Progress Note ---
Date of Service September 07, 2022 Assessment & Plan (1) Scrotal abscess: Plan: Overall he is recovering well from drainage of scrotal abscess on 09/05/2022. Cultures have not shown any growth at this point he remains on broad-spectrum antibiotics. We recommend de-escalating to empiric oral antibiotic such as Bactrim and continuing this for 7 to 10 days. If he remains afebrile, it would be reasonable to discharge home. He and/or his can be taught packing/dress ing changes and should do this on a daily basis at home. The urology office will call to arrange a follow-up appointment to ensure the wound is healing as it should. Admission and Anticipated Discharge Date Admission Date: September 04, 2022 Subjective Feeling well this morning Pain has improved substantially although photographer still with dressing changes Blood cultures negative at 48 hours, Gram stain of wound culture with no growth to date. Has been on daptomycin, doxycycline and Zosyn. Denies any fevers or chills Physical Exam Physical Exam: Well-appearing, NAD Genitourinary: Scrotum with drainage wick in the right hemiscrotum incision, minimal discharge or drainage, minimal erythema, mildly tender to palpation. Results & Data Vital Signs (Past 12 Hours) Vital Signs Temp Pulse Pulse Resp BP Pulse Ox O2 Del Method 09/07/22 07:49 36.6 C 67 18 120/83 99 Room Air 09/07/22 02:26 36.6 C 67 16 115/82 96 Room Air 09/07/22 00:43 78 09/06/22 22:13 36.8 C 72 18 124/85 97 Room Air PG Care Time/CCT Total # of Minutes Spent Total Time Spent with Patient: Total time spent is greater than 50% in coordination of care (as documented) at patient's floor/unit and/or counseling patient: Coding Level of Care Code 12589 SUB INP/OBS CARE 03/31MIN Diagnoses Scrotal abscess N49.2
[2022-09-07] MEDS: KETOROLAC TROMETHAMINE 15 MG/ML VIAL IV PRN (11:42)
[2022-09-07] MEDS ORDERED: DIPHTHERIA/TETANUS/PERTUSSIS Vaccine (Tdap, Age 7+yrs) 0.5mL SYR/VL IM ONE (12:51)
--- NOTE | 2022-09-07 13:08 | Hospitalist Progress Note ---
Date of Service September 07, 2022 Assessment & Plan (1) Sepsis: Plan: Severe sepsis SIRS plus lactic acidosis Secondary to scrotal cellulitis -- blood culture: negative -- Scrotum US: 1. Asymmetric thickening within the scrotal wall with increased vascularity. This suggests a cellulitis. No loculated fluid collections to suggest an abscess. 2. No scrotal masses. . Trace right hydrocele. --Lyme screen protocol, Western blot pending Anaplasmosis test pending --Status post I&D daily by urologist Drainage culture: No growth today Blood cultures: Negative --Afebrile, clinically improving -- continue daptomycin,, doxycycline, Zosyn Continue packing, further management per general surgery Records reviewed, patient's last Tdap was 10 years ago, will administer Tdap Transaminitis, also noted on outpatient blood work, possible fatty liver disease Mood disorder, currently stable off maintenance medications Ongoing tobacco abuse DVT prophylaxis. Lovenox SC Full code plan of care discussed with patient in detail and at length all questions answered he is understanding, agreeable, comfortable with the plan of care Admission and Anticipated Discharge Date Admission Date: September 04, 2022 Results & Data Results & Data Vital Signs (Past 12 Hours) Vital Signs Temp Pulse Pulse Resp BP Pulse Ox O2 Del Method 09/07/22 11:14 36.6 C 75 18 134/82 98 Room Air 09/07/22 09:00 63 09/07/22 07:49 36.6 C 67 18 120/83 99 Room Air 09/07/22 02:26 36.6 C 67 16 115/82 96 Room Air
--- NOTE | 2022-09-07 18:51 | Hospitalist Progress Note ---
Date of Service September 07, 2022 Assessment & Plan (1) Sepsis: Plan: Severe sepsis SIRS plus lactic acidosis Secondary to scrotal cellulitis -- blood culture: negative -- Scrotum US: 1. Asymmetric thickening within the scrotal wall with increased vascularity. This suggests a cellulitis. No loculated fluid collections to suggest an abscess. 2. No scrotal masses. . Trace right hydrocele. --Lyme screen protocol, Western blot pending Anaplasmosis test pending --Status post I&D daily by urologist Drainage culture: No growth today Blood cultures: Negative --Afebrile, clinically improving -- continue daptomycin,, doxycycline, Zosyn Continue packing, further management per general surgery Records reviewed, patient's last Tdap was 10 years ago, will administer Tdap Transaminitis, also noted on outpatient blood work, possible fatty liver disease Mood disorder, currently stable off maintenance medications Ongoing tobacco abuse DVT prophylaxis. Lovenox SC Full code plan of care discussed with patient in detail and at length all questions answered he is understanding, agreeable, comfortable with the plan of care Admission and Anticipated Discharge Date Admission Date: September 04, 2022 Results & Data Results & Data Vital Signs (Past 12 Hours) Vital Signs Temp Pulse Pulse Resp BP Pulse Ox O2 Del Method 09/07/22 13:28 36.6 C 75 18 134/82 98 09/07/22 11:14 36.6 C 75 18 134/82 98 Room Air 09/07/22 09:00 63 09/07/22 07:49 36.6 C 67 18 120/83 99 Room Air
[2022-09-08 05:07] LABS: Babesia microti DNA Not Detected (Not Detected)
[2022-09-08 09:16] LABS: 18KDIGG Band NON-REACTIVE; 23KDIGG Band NON-REACTIVE; 23KDIGM Band REACTIVE; 28KDIGG Band NON-REACTIVE; 30KDIGG Band NON-REACTIVE; 39KDIGG Band NON-REACTIVE; 39KDIGM Band NON-REACTIVE; 41KDIGG Band NON-REACTIVE; 41KDIGM Band NON-REACTIVE; 45KDIGG Band NON-REACTIVE; 58KDIGG Band NON-REACTIVE; 66KDIGG Band NON-REACTIVE; 93KDIGG Band NON-REACTIVE; Lyme Antibodies, WB IgG NEGATIVE (NEGATIVE); Lyme Antibodies, WB IgM NEGATIVE (NEGATIVE)
== END 2022-09-07 13:42 | disposition home or self-care (01) | DRG 872 ==
LOC: ED 23:02 → 2W 09-04 04:01